=== PATIENT | female | born 1950 | race Caucasian/White ===

== ENCOUNTER 2016-09-18 22:15 | Emergency (ER) | payer MEDICARE, BC ==
[2016-09-18 22:41] LABS: BASOPHILS 0.2 %; BASOPHILS ABSOLUTE 0.01 10/3/uL (0.0-0.16); EOSINOPHILS 0 %; HEMATOCRIT 39.8 % (36.0-48.0); HEMOGLOBIN 13.5 g/dL (12.0-16.0); IMMATURE GRANULOCYTES 0.2 %; IMMATURE GRANULOCYTES ABSOLUTE 0.01 10/3/uL (0.0-0.11); LYMPHOCYTES 12.5 %; LYMPHOCYTES ABSOLUTE 0.69 10/3/uL (0.67-4.30); MANUAL DIFF NO %; MEAN CORPUS HGB CONC 33.9 g/dL (32.0-36.0); MEAN CORPUSCULAR VOLUME 97.3 fL (80-100); MEAN PLATELET VOLUME 9.8 fL (9.2-13.0); MONOCYTES 4.4 %; MONOCYTES ABSOLUTE 0.24 10/3/uL (0.21-1.20); NEUTROPHILS 82.7 %; NEUTROPHILS ABSOLUTE 4.56 10/3/uL (2.02-8.40); PLATELET COUNT 251 10/3/uL (150-400); RBC DISTRIBUTION WIDTH 13.2 % (12.0-16.0); RED CELL COUNT 4.09 10/6/uL (4.0-5.6); WHITE BLOOD CELLS 5.5 10/3/uL (4.5-10.5)
[2016-09-18 22:57] LABS: ALBUMIN 4.1 G/DL (3.5-5.0); CHLORIDE, SERUM 100 MMOL/L (96-112); CREATININE 1.24 MG/DL (0.55-1.02); GFR AFRICAN AMERICAN 52 ML/MIN (>=60); GFR NON AFRICAN AMERICAN 45 ML/MIN (>=60); POTASSIUM, SERUM 4.2 MMOL/L (3.5-5.3); SGOT(AST) 31 U/L (5-40); SGPT(ALT) 32 U/L (5-65); SODIUM, SERUM 140 MMOL/L (135-148); TOTAL PROTEIN 8.2 G/DL (6.0-8.5)
[2016-09-18 22:58] LABS: ALKALINE PHOSPHATASE 112 U/L (45-117); BUN (BLOOD UREA NITROGEN) 23 MG/DL (6-23); CO2 (CARBON DIOXIDE) 23 MMOL/L (24-34); GLOBULIN 4.1 G/DL (2.5-4.1); GLUCOSE, SERUM 297 MG/DL (60-99); TOTAL BILIRUBIN 0.5 MG/DL (0-1.2)
[2016-09-18 23:23] LABS: TROPONIN I <0.02 NG/ML (<0.05)
== END 2016-09-19 02:37 | disposition home or self-care (01) ==
LOC: ER 22:15
PROVIDERS: Hospitalist
DX: J40 Bronchitis, not specified as acute or chronic (principal); N17.9 Acute kidney failure, unspecified; I10 Essential (primary) hypertension; E11.9 Type 2 diabetes mellitus without complications; E78.5 Hyperlipidemia, unspecified; Z88.2 Allergy status to sulfonamides; Z88.1 Allergy status to other antibiotic agents; Z88.8 Allergy status to other drugs, medicaments and biological substances
CPT/HCPCS: 71020; 71250; 80053; 84484; 85025; 87040; 93005; 94640; 99284; A9270-GY